=== PATIENT | male | born 1960 | race Caucasian/White ===

== ENCOUNTER 2017-05-25 13:35 | Emergency (ER) | payer SELFPAY ==
[~2017-05-25] VITALS: Ht 182.9 cm; Wt 89.9 kg
[~2017-05-25 13:35] MED LIST: AMOX500T2 PO; LORT5TAB PO
[2017-05-25 13:47] VITALS: BP 177/107; PULSE 93; RESP 16; TEMP 97.7; O2SAT 97
[2017-05-25] MEDS ORDERED: FLUORESCEIN SOD 1 MG STRIP EACH EYE ONE (14:15)
[2017-05-25] MEDS ORDERED: TETRACAINE 0.5% OPTH SOLN 4 ML BTL EACH EYE ONE (14:15)
--- NOTE | 2017-05-25 14:36 | PD ---
HPI Chief Complaint: Eye Problems/Injury Time Seen by Provider: 14:04 Travel History International Travel<30 days: No Contact w/Intl Traveler<30days: No Traveled to known affect area: No History of Present Illness HPI 56-year-old male arrives complaining of pain in the left thigh which is worse in the mornings. He reports sleeping with his left side partially open her since he was 19 years old. For the past couple weeks he has intermittently, on intermittently not consecutive mornings, had left eye pain. He's had no erythema or purulent discharge. The has had no fever. He's had no blurred vision or double vision or loss of vision. Symptoms improved towards the end of the day. There is no diplopia or pain with range of motion of the eyes. No new or different medication. He states two cats sleep on his bed one of which has long hair. He states he sleeps on his left side. He is worried he might have a corneal abrasion. PFSH Past Medical History Depression: Yes Cancer: No Cardiovascular Problems: No Chemotherapy: No Diminished Hearing: No Genitourinary: No Musculoskeletal: No Neurologic: Yes Psychiatric: Yes Reproductive: No Respiratory: Yes Radiation Therapy: No Tetanus Vaccination: > 5 Years Influenza Vaccination: No Past Surgical History Appendectomy: Yes Oral Surgery: Yes (ROOT [employer]NALS 25 YEARS AGO) Social History Alcohol Use: Yes ("At least a pint a day") Tobacco Use: Yes (20-30 cigarettes/day) Substance Use: No Allergies-Medications (Allergen,Severity, Reaction): Coded Allergies: No Known Allergies (Verified , 05/25/17) Reported Meds & Prescriptions Reported Meds & Active Scripts Active No Active Prescriptions or Reported Medications Review of Systems Except as stated in HPI: all other systems reviewed are Neg General / Constitutional: No: Fever Eyes: Positive: Blurred Vision (in the mornings), Foreign Body Sensation, Visual changes (in the mornings which resolved), No: Diploplia, Blind Spots, Blindness Physical Exam Narrative GENERAL: 56-year-old male well-nourished well-developed no acute distress SKIN: Warm and dry. [place] exam lamp with stain of the eye: There is no corneal abrasion. HEAD: Atraumatic. Normocephalic. EYES: Pupils equal and round. No scleral icterus. No injection or drainage. There is minimal erythema at the margin of the left upper eyelid. No chalazion or 40-year-old. Possible blepharitis noted. ENT: No nasal bleeding or discharge. Mucous membranes pink and moist. NECK: Trachea midline. No JVD. CARDIOVASCULAR: Regular rate and rhythm. RESPIRATORY: No accessory muscle use. Clear to auscultation. Breath sounds equal bilaterally. GASTROINTESTINAL: Abdomen soft, non-tender, nondistended. Hepatic and splenic margins not palpable. MUSCULOSKELETAL: Extremities without clubbing, cyanosis, or edema. No obvious deformities. NEUROLOGICAL: Awake and alert. No obvious cranial nerve deficits. Motor grossly within normal limits. Five out of 5 muscle strength in the arms and legs. Normal speech. PSYCHIATRIC: Appropriate mood and affect; insight and judgment normal. Data Data Last Documented VS Vital Signs Date Time Temp Pulse Resp B/P Pulse Ox O2 Delivery O2 Flow Rate FiO2 05/25/17 13:47 97.7 93 16 177/107 97 Vital signs reviewed Orders Tetracaine 0.5% Opth Soln (Tetracaine 0. (05/25/17 14:15) Fluorescein Strip (Mqqoj-[id number] A.T.) (05/25/17 14:15) MDM Medical Decision Making Medical Screen Exam Complete: Yes Emergency Medical Condition: Yes Medical Record Reviewed: Yes Differential Diagnosis Conjunctivitis, corneal abrasion, blepharitis, hordeolum, chalazion, post- septal cellulitis, periorbital cellulitis, glaucoma Narrative Course Patient has no visual changes, ER evaluation. He reports visual changes in the morning with eye pain. He notes that his left eye is open when he sleeps and that he sleeps in the left side of his body suggesting that corneal abrasion or structural exterior eye disease accounts for his discomfort. Fluoroscein exam is normal. Patient might have an anterior blepharitis. Warm compresses. Symptoms are somewhat mild. Warm compresses recommended. A referral has been provided for Dr. Parrish if necessary. Diagnosis Primary Impression: Blepharitis Qualified Code: H01.004 - Blepharitis of left upper eyelid, unspecified type Referrals: Rody Parrish MD call for appointment Additional Instructions: PLEASE APPLY A WARM COMPRESS TO THE LEFT EYE 20 MINUTES AT A TIME. IF YOU DEVELOP DOUBLE VISION OR A LOSS OF VISION OF ANY KIND PLEASE RETURN TO THE ER RIGHT AWAY. Med/Other Pt SpecificInfo: No Change to Meds Scripts No Active Prescriptions or Reported Meds Disposition: 01 DISCHARGE HOME Condition: Nestor Rosas MD May 25, 2017 14:36
[2017-05-25 14:50] VITALS: BP 190/102; PULSE 90; RESP 18; O2SAT 98
== END 2017-05-25 14:55 | disposition home or self-care (01) ==
LOC: PHED 13:35
DX: H01.004 Unspecified blepharitis left upper eyelid (principal)
CPT/HCPCS: 99283